=== PATIENT | female | born 1990 | race Caucasian/White ===

== ENCOUNTER 2019-01-12 05:36 | Day surgery (SDC) | payer BC ==
[~2019-01-12 05:36] MED LIST: Buffered Lidocaine 1% SYRIN* 1 ML/SYRINGE INTRADERM ONE
[2019-01-12] MEDS ORDERED: Famotidine IV* 10 MG/ML 2 ML (20 mg) IV ONE (06:00)
[2019-01-12] MEDS ORDERED: Lactated Ringers 1000 ML Bag* 1,000 ML IV SCH (06:00)
[2019-01-12] MEDS ORDERED: Dexamethasone IV* 4 MG/ML 1 ML (4 MG) ONE (06:19)
[2019-01-12] MEDS ORDERED: Ondansetron INJ* 2 MG/ML VIAL ONE ×2 (06:20→07:10)
[2019-01-12] MEDS ORDERED: ceFAZolin 2 GM PREMIX in ORs 2 GM/50 ML BAG IVPB ONE (06:20)
[2019-01-12] MEDS ORDERED: Scopolamine 1.5 mg* PATCH ONE (06:20)
[2019-01-12] MEDS ORDERED: Famotidine IV* 10 MG/ML 2 ML (20 mg) ONE (06:20)
[2019-01-12] MEDS ORDERED: Gentamicin ADULT (*) 40 MG/ML VIAL (2 ML VIAL = 80 MG) ONE (07:00)
[2019-01-12] MEDS ORDERED: ceFAZolin VIAL(*) VIAL ONE (07:01)
[2019-01-12] MEDS ORDERED: Bacitracin INJECTION* 50,000 UNITS ONE (07:01)
[2019-01-12] MEDS ORDERED: Povidone Iodine 5% OPTH* 30 ML BTL ONE ×2 (07:06→09:49)
[2019-01-12] MEDS ORDERED: Buffered Lidocaine 1% SYRIN* 1 ML/SYRINGE INTRADERM ONE (07:07)
[2019-01-12] MEDS ORDERED: KETAMINE HCL* 50 MG/ML 10 ML VIAL ONE (07:10)
[2019-01-12] MEDS ORDERED: Midazolam* 1 MG/ML 5 ML VIAL (5 MG) ONE (07:10)
[2019-01-12] MEDS ORDERED: Lidocaine 2% PF * 5 ML VIAL ONE ×2 (07:10→08:15)
[2019-01-12] MEDS ORDERED: fentaNYL* 50 MCG/ML 2 ML VIAL (100 MCG VIAL) ONE ×4 (07:10→11:15)
[2019-01-12] MEDS ORDERED: Propofol* 10 MG/ML 20 ML BTL ONE (07:10)
[2019-01-12] MEDS ORDERED: Propofol* 500 MG/50 ML BTL ONE (08:15)
[2019-01-12] MEDS ORDERED: PROCHLORPERAZINE INJ 5 MG/ML 2 ML VIAL IV PRN (08:54)
[2019-01-12] MEDS ORDERED: Naloxone* 0.4 MG/ML 1 ML VIAL IV PRN (08:54)
[2019-01-12] MEDS ORDERED: DiMENhydriNATE IV* 50 MG/ML VIAL IV PUSH PRN (08:54)
[2019-01-12] MEDS ORDERED: HYDROmorphone INJ1* 1 MG/ML SYRINGE ONE ×2 (10:12→14:04)
[2019-01-12] MEDS ORDERED: oxyCODONE/Acetamin 5/325 MG* TAB ONE ×2 (10:58→11:15)
[2019-01-12] MEDS: fentaNYL* 50 MCG/ML 2 ML VIAL (100 MCG VIAL) IV PRN ×4 (11:00→11:50)
[2019-01-12] MEDS: oxyCODONE/Acetamin 5/325 MG* TAB PO PRN ×2 (11:03→11:16)
[2019-01-12 14:48] VITALS: BP 109/61
== END 2019-01-12 14:59 | disposition home or self-care (01) ==
LOC: OR 05:36
PROVIDERS: ATTEND Plastic Surgery
DX: Z41.1 Encounter for cosmetic surgery (principal); F41.8 Other specified anxiety disorders
CPT/HCPCS: 81025; A9270-GY; J0690; J1100; J1170; J1580; J2250; J2405; J2704; J3010